=== PATIENT | female | born 1995 | race Caucasian/White ===

== ENCOUNTER 2018-10-24 21:40 | Emergency (ER) | payer OTHER ==
[2018-10-24] MEDS ORDERED: Sulfamethox/Trimethoprim DS 800/160* TAB PO ONE (21:52)
--- NOTE | 2018-10-24 21:52 | UC ---
Complaint Female HPI - HPI Summary HPI Summary: 23 yo female presents with urinary frequency, burning, and bladder pressure for the last two days. She is currently her 7m old. Slight lower abdominal discomfort/pressure. Denies fever, chills, flank pain, hematuira. - History Of Current Complaint Stated Complaint: URINARY Hx Obtained From: Patient Hx Last Menstrual Period: 03/29/14 Onset/Duration: Sudden Onset Severity Initially: Mild Severity Currently: Mild Pain Intensity: 3 Pain Scale Used: 0-10 Numeric - Allergies/Home Medications Allergies/Adverse Reactions: Allergies Allergy/AdvReac Type Severity Reaction Status Date / Time No Known Allergies Allergy Verified 10/24/18 21:55 Home Medications: Home Medications Levonorgestrel (Iud) [Mirena IUD] 20 mcg IU DAILY 10/24/18 [History Confirmed ] metroNIDAZOLE VAGINAL 0.75%* 1 applic VAGINAL BEDTIME 10/24/18 [History Confirmed 10/24/18] PMH/Surg Hx/FS Hx/Imm Hx - Additional Past Medical History Additional PMH: None - Surgical History Surgical History: Yes Surgery Procedure, Year, and Place: Appendectomy, 2007, [facility] - Family History Known Family History: Positive: None - Social History Occupation: Student Lives: With Family Alcohol Use: None Substance Use Type: None Smoking Status (MU): Never Smoked Tobacco Household Exposure Type: Cigarettes - Immunization History Vaccination Up to Date: Yes Review of Systems All Other Systems Reviewed And Are Negative: Yes Constitutional: Positive: Negative Skin: Positive: Negative Respiratory: Positive: Negative Cardiovascular: Positive: Negative Gastrointestinal: Positive: Negative Genitourinary: Positive: Dysuria, Frequency, Urgency Neurological: Positive: Negative Psychological: Positive: Negative Physical Exam - Summary Physical Exam Summary: GENERAL: NAD. WDWN. No pain distress. SKIN: No rashes, sores, lesions, or open wounds. NECK: Supple. Nontender. No lymphadenopathy. CHEST: CTAB. No r/r/w. No accessory muscle use. Breathing comfortably and in no distress. CV: RRR. Without m/r/g. Pulses intact. Cap refill <2seconds ABDOMEN: Soft. NTTP. No distention or guarding. No CVA tenderness. Bowel sounds present NEURO: Alert. PSYCH: Age appropriate behavior. Triage Information Reviewed: Yes Vital Signs: Vital Signs: Temp Pulse Resp BP Pulse Ox 97.8 F 81 20 124/64 100 10/24/18 21:46 10/24/18 21:46 10/24/18 21:46 10/24/18 21:46 10/24/18 21:46 Laboratory Tests 10/24/18 21:56 POC Urine Color Other POC Urine Clarity Other POC Urine pH 6.0 POC Ur Specif [place] >= 1.030 POC Urine Protein 2+ A POC Ur Glucose (UA) Negative POC Urine Ketones Trace A POC Urine Blood Trace-intact A POC Urine Nitrite Positive A POC Urine Bilirubin Negative POC Urine Urobilinogen 0.2 POC U Leukocyte Esteras 1+ A Vital Signs Reviewed: Yes Complaint Female Dx - Course Course Of Treatment: UA positive. UTI. Treat with keflex BID for 5 days and send urine for culture. - Differential Dx/Diagnosis Provider Diagnosis: UTI (urinary tract infection) Discharge - Sign-Out/Discharge Documenting (check all that apply): Patient Departure All imaging exams completed and their final reports reviewed: No Studies - Discharge Plan Condition: Stable Disposition: HOME Prescriptions: Cephalexin CAP* [Keflex CAP*] 500 mg PO BID #10 cap Patient Education Materials: Urinary Tract Infection in Women (DC) Referrals: Saloni Hanks MD [Primary Care Provider] - Additional Instructions: If you develop a fever, shortness of breath, chest pain, new or worsening symptoms - please call your PCP or go to the ED. - Billing Disposition and Condition Condition: STABLE Disposition: Home
[2018-10-24 21:55] VITALS: BP 124/64
[2018-10-24] MEDS ORDERED: Cephalexin CAP* 500 MG PO ONE (22:01)
== END 2018-10-24 22:05 | disposition home or self-care (01) ==
LOC: UCCORT 21:40
DX: N39.0 Urinary tract infection, site not specified (principal); B96.20 Unspecified Escherichia coli [E. coli] as the cause of diseases classified elsewhere
CPT/HCPCS: 81003; 87077; 87086; 87186; 99212; A9270-GY; G0463

== ENCOUNTER 2018-11-20 15:06 | Emergency (ER) | payer OTHER ==
[2018-11-20 17:50] VITALS: BP 114/65
[2018-11-20 18:00] LABS: Influenza A Molecular POSITIVE (Negative)
--- NOTE | 2018-11-20 18:01 | UC ---
Respiratory Complaint HPI - HPI Summary HPI Summary: Per net ui developer "c/o fever, cough, and body aches beginning yesterday when woke up." -Denies history of asthma, diabetes or kidney disease. She has an 8-month-old daughter at home. Baby does not have any symptoms. Patient does not work or go to school. She did not take her temperature at home. Appetite is decreased. - History of Current Complaint Chief Complaint: UCGeneralIllness Stated Complaint: FEVER,CHILLS,BODY ACHES,NAUSEA Time Seen by Provider: 11/20/18 17:48 Hx Last Menstrual Period: unknown, mirena Pain Intensity: 5 - Allergies/Home Medications Allergies/Adverse Reactions: Allergies Allergy/AdvReac Type Severity Reaction Status Date / Time No Known Allergies Allergy Verified 11/20/18 17:47 PMH/Surg Hx/FS Hx/Imm Hx Previously Healthy: Yes - Surgical History Surgical History: Yes Surgery Procedure, Year, and Place: Appendectomy, 2007, [facility]. Gallbladder 2017 - Family History Known Family History: Positive: Hypertension - Social History Alcohol Use: None Substance Use Type: None Smoking Status (MU): Never Smoked Tobacco Household Exposure Type: Cigarettes - Immunization History Vaccination Up to Date: Yes Review of Systems All Other Systems Reviewed And Are Negative: Yes Constitutional: Positive: Fever, Chills, Fatigue Skin: Positive: Negative Eyes: Positive: Negative ENT: Positive: Sore Throat Respiratory: Positive: Cough Cardiovascular: Positive: Negative Gastrointestinal: Positive: Negative Genitourinary: Positive: Negative Motor: Positive: Negative Neurovascular: Positive: Negative Musculoskeletal: Positive: Arthralgia, Myalgia Neurological: Positive: Negative Psychological: Positive: Negative Is Patient Immunocompromised?: No Physical Exam Triage Information Reviewed: Yes Appearance: Ill-Appearing - Mild Vital Signs: Initial Vital Signs Temp 98.8 F 11/20/18 17:46 Pulse 99 11/20/18 17:46 Resp 16 11/20/18 17:46 BP 114/65 11/20/18 17:46 Pulse Ox 100 11/20/18 17:46 Vital Signs Reviewed: Yes Eye Exam: Normal ENT: Positive: Pharyngeal erythema, Nasal congestion, TMs normal, Uvula midline. Negative: TM bulging, TM dull, TM red, Tonsillar swelling, Tonsillar exudate, Hoarse voice, Sinus tenderness Dental Exam: Normal Neck exam: Normal Neck: Positive: Supple, Nontender, Enlarged Nodes @ - Bilateral mild cervical lymphadenopathy Respiratory Exam: Normal Respiratory: Positive: Chest non-tender, Lungs clear, Normal breath sounds, No respiratory distress, No accessory muscle use. Negative: Crackles, Rhonchi, Stridor, Wheezing Cardiovascular Exam: Normal Cardiovascular: Positive: RRR, No Murmur, Pulses Normal Abdominal Exam: Normal Abdomen Description: Positive: Nontender, Soft Musculoskeletal Exam: Normal Neurological Exam: Normal Psychological Exam: Normal Skin Exam: Normal UC Diagnostic Evaluation - Laboratory O2 Sat by Pulse Oximetry: 100 Respiratory Course/Dx - Course Course Of Treatment: Positive rapid strep A. -Discussed CDC guidelines recommend against treatment with Tamiflu for the general population without increased risk for complications. She should exercise extreme caution when she is near her baby. Recommended that she buy some facemasks and avoid close contact whenever possible. She should call her computer assembler to discuss possible prophylactic management due to her age. - Differential Dx/Diagnosis Differential Diagnosis/HQI/PQRI: Asthma, Bronchitis, Sinusitis Provider Diagnosis: Influenza A Discharge - Sign-Out/Discharge Documenting (check all that apply): Patient Departure All imaging exams completed and their final reports reviewed: No Studies - Discharge Plan Condition: Stable Disposition: HOME Patient Education Materials: Influenza (ED) Referrals: Saloni Hanks MD [Primary Care Provider] - Additional Instructions: -Make sure to get plenty of rest and fluids. Ibuprofen 800 mg every 8 hours or Tylenol 1000 mg every 6 hours can be helpful for the symptoms. Make sure to wear a mask around her baby. He should call your baby's computer assembler to notify appear positive flu test. Her computer assembler may choose to treat her prophylactically with Tamiflu because of her young age putting her at higher risk for complications. - Billing Disposition and Condition Condition: STABLE Disposition: Home
== END 2018-11-20 18:23 | disposition home or self-care (01) ==
LOC: UCCORT 15:06
DX: J10.1 Influenza due to other identified influenza virus with other respiratory manifestations (principal)
CPT/HCPCS: 99211; G0463